=== PATIENT | female | born 1955 | race Caucasian/White ===

== ENCOUNTER → 2023-05-01 | Day surgery (SDC) | payer OTHER ==
[2023-05-01 09:15] LABS: BASO % 0.9 % (0-2.0); EOS % 0.9 % (0-4.5); HEMATOCRIT 30.4 % (32.4-45.2); LYMPH % 5.6 % (8-40); MCH 24.8 pg (25.7-33.7); MCHC 32.7 g/dl (32.0-36.0); MEAN CELL VOLUME 75.9 fl (80-96); MONO % 11.8 % (3.8-10.2); NEUT % 80.8 % (42.8-82.8); PLATELET COUNT 207 10^3/uL (134-434); RBC 4.01 M/mm3 (3.60-5.2); RDW 17.1 % (11.6-15.6); WHITE BLOOD COUNT 2.8 K/mm3 (4.0-10.0)
[2023-05-01 09:21] LABS: INR 1.3 (0.83-1.09)
[2023-05-01 13:40] LABS: BF WBC & OTHER NUCLEATED CELLS 632 /mm3
[2023-05-01 13:53] LABS: BODY FLUID MACROPHAGES 25 %; BODY FLUID MESOTHELIAL 2 %
[2023-05-02 16:08] LABS: BODY FLUID ALBUMIN 2.2 g/dL (Not Estab.)
== END | disposition home or self-care (01) ==
LOC: JRADIR 08:20
PROVIDERS: ATTEND Internal Medicine Gastroenterology
PROC: 0W9G3ZZ Drainage of Peritoneal Cavity, Percutaneous Approach (ICD-10-PCS; principal; 2023-05-01)
DX: R18.8 Other ascites (principal)
CPT/HCPCS: 36415; 49083; 76942-TC; 82042; 82150; 82465; 82945; 83615; 83986; 84157; 84478; 85025; 85610; 87070; 87075; 87102; 87116; 87205; 87206; 87210; 88108; 88305-TC

== ENCOUNTER 2023-05-02 17:25 | Inpatient (IN) | payer OTHER, MEDICARE ==
[2023-05-02] MEDS ORDERED: SODIUM CHLORIDE 0.9% 500 ML INFUS.BAG IV ONE (19:35)
[2023-05-02 20:29] LABS: HEMATOCRIT 29.8 % (32.4-45.2); HEMOGLOBIN 9.8 G/dL (10.7-15.3); MCH 25.7 pg (25.7-33.7); MCHC 32.8 g/dl (32.0-36.0); MEAN CELL VOLUME 78.3 fl (80-96); MEAN PLT VOLUME 9.2 fl (7.5-11.1); WHITE BLOOD COUNT 2.9 10^3/uL (4.0-10.8)
[2023-05-02 20:38] LABS: INR 1.31 (0.83-1.09); PROTHROMBIN TIME (PATIENT) 15.2 SEC (9.7-13.0)
[2023-05-02 20:52] LABS: ALBUMIN 3.1 g/dl (3.4-5.0); BILIRUBIN,TOTAL 0.8 mg/dl (0.2-1); BLOOD UREA NITROGEN 8.3 mg/dl (7-18); CREATININE 0.7 mg/dl (0.6-1.3); MAGNESIUM 1.9 mg/dL (1.8-2.4); PHOSPHOROUS 2.85 (2.5-4.9); POTASSIUM 3.9 mmol/L (3.5-5.1); SGOT/AST 16.4 U/L (15-37); SGPT/ALT 7.3 U/L (7-52)
[2023-05-02 21:06] LABS: PLATELET ESTIMATE ADEQUATE
[2023-05-02] MEDS ORDERED: PIPERACILLIN/TAZOB 4.5 GM 4.5 GM in DEXTROSE 5%-WATER 100 ML IVPB ONE (22:48)
[2023-05-02] MEDS ORDERED: PIPERACILLIN/TAZOBACTAM 4.5 GM VIAL IVPB ONE (22:58)
[2023-05-02] MEDS ORDERED: VANCOMYCIN 1,000 MG in DEXTROSE 5%-WATER - 250 ML IVPB ONE (23:37)
[2023-05-02] MEDS ORDERED: DOCUSATE SODIUM 100 MG CAPSULE (FP) PO PRN (23:39)
[2023-05-02] MEDS ORDERED: VANCOMYCIN 1,000 MG VIAL (RESTRICTED TO ID ONLY) ONE (23:45)
[2023-05-03] MEDS ORDERED: ALBUTEROL SO4 HFA INHALER IH PRN (01:15)
[2023-05-03] MEDS: LEVOTHYROXINE NA 50 MCG TABLET (FP) PO SCH (07:06)
[2023-05-03 08:17] LABS: ACTIVATED PTT 32.5 SECONDS (25.2-36.5); INR 1.24 (0.83-1.09); PROTHROMBIN TIME (PATIENT) 14.3 SEC (9.7-13.0)
[2023-05-03 08:31] LABS: BLOOD UREA NITROGEN 8.1 mg/dl (7-18); CALCIUM 7.9 mg/dl (8.5-10.1); CREATININE 0.7 mg/dl (0.6-1.3); PHOSPHOROUS 3.43 (2.5-4.9); POTASSIUM 3.6 mmol/L (3.5-5.1)
[2023-05-03 09:30] LABS: BASO % 1.2 % (0-2.0); EOS % 2.1 % (0-4.5); HEMATOCRIT 26.5 % (32.4-45.2); HEMOGLOBIN 8.5 GM/dL (10.7-15.3); LYMPH % 7.7 % (8-40); MCH 24.7 pg (25.7-33.7); MCHC 32.2 g/dl (32.0-36.0); MEAN CELL VOLUME 76.8 fl (80-96); MEAN PLT VOLUME 8.1 fl (7.5-11.1); MONO % 13.6 % (3.8-10.2); NEUT % 75.4 % (42.8-82.8); PLATELET COUNT 179 10^3/uL (134-434); RBC 3.45 M/mm3 (3.60-5.2); RDW 16.8 % (11.6-15.6)
[2023-05-03] MEDS ORDERED: PIPERACILLIN/TAZOB 3.375 GM 3.375 GM in DEXTROSE 5%-WATER - 50 ML IVPB ONE (11:30)
[2023-05-03] MEDS ORDERED: VANCOMYCIN/WATER FOR INJ (PEG) 1 GM/200 ML BAG IVPB ONE (12:15)
[2023-05-04] MEDS: LEVOTHYROXINE NA 50 MCG TABLET (FP) PO SCH (06:58)
[2023-05-04] MEDS ORDERED: SODIUM CHLORIDE 1,000 ML IV SCH (07:45)
[2023-05-04 08:24] LABS: INR 1.25 (0.83-1.09); PROTHROMBIN TIME (PATIENT) 14.5 SEC (9.7-13.0)
[2023-05-04 09:27] LABS: ALBUMIN 2.9 g/dl (3.4-5.0); BILIRUBIN,TOTAL 0.7 mg/dl (0.2-1); BLOOD UREA NITROGEN 8.5 mg/dl (7-18); CALCIUM 7.9 mg/dl (8.5-10.1); CREATININE 0.6 mg/dl (0.6-1.3); MAGNESIUM 1.8 mg/dL (1.8-2.4); PHOSPHOROUS 3.01 (2.5-4.9); POTASSIUM 3.4 mmol/L (3.5-5.1); SGOT/AST 13.3 U/L (15-37); SGPT/ALT 6.3 U/L (7-52); TOT PROT 4.8 g/dl (6.4-8.2)
[2023-05-04 11:53] LABS: BASO % 1.1 % (0-2.0); HEMATOCRIT 28.1 % (32.4-45.2); HEMOGLOBIN 9.3 GM/dL (10.7-15.3); LYMPH % 8.4 % (8-40); MCH 24.8 pg (25.7-33.7); MCHC 32.9 g/dl (32.0-36.0); MEAN CELL VOLUME 75.3 fl (80-96); MEAN PLT VOLUME 8.1 fl (7.5-11.1); MONO % 14.6 % (3.8-10.2); NEUT % 73.9 % (42.8-82.8); PLATELET COUNT 179 10^3/uL (134-434); RBC 3.74 M/mm3 (3.60-5.2); WHITE BLOOD COUNT 2.1 K/mm3 (4.0-10.0)
[2023-05-05] MEDS: LEVOTHYROXINE NA 50 MCG TABLET (FP) PO SCH (06:59)
[2023-05-05 10:10] LABS: CARCINOEMBRYONIC ANTIGEN 1.1 ng/mL (0.0-4.7)
[2023-05-05 11:14] LABS: BASO % 0.9 % (0-2.0); EOS % 1.5 % (0-4.5); HEMATOCRIT 27.7 % (32.4-45.2); HEMOGLOBIN 8.9 GM/dL (10.7-15.3); LYMPH % 10.8 % (8-40); MCH 24.7 pg (25.7-33.7); MCHC 32.3 g/dl (32.0-36.0); MEAN CELL VOLUME 76.4 fl (80-96); MONO % 12.6 % (3.8-10.2); NEUT % 74.2 % (42.8-82.8); PLATELET COUNT 184 10^3/uL (134-434); RBC 3.62 M/mm3 (3.60-5.2); RDW 17.1 % (11.6-15.6); WHITE BLOOD COUNT 2.1 K/mm3 (4.0-10.0)
[2023-05-05 11:15] LABS: INR 1.29 (0.83-1.09); PROTHROMBIN TIME (PATIENT) 14.9 SEC (9.7-13.0)
[2023-05-05 11:36] LABS: POTASSIUM 3.5 mmol/L (3.5-5.1)
[2023-05-05 11:49] LABS: ALBUMIN 2.2 g/dl (3.4-5.0); BLOOD UREA NITROGEN 9.4 mg/dL (7-18)
[2023-05-05 11:50] LABS: CALCIUM 7.7 mg/dL (8.5-10.1)
[2023-05-05 11:53] LABS: CREATININE 0.5 mg/dL (0.55-1.3); PHOSPHOROUS 2.5 mg/dL (2.5-4.9)
[2023-05-05 11:54] LABS: BILIRUBIN,TOTAL 0.5 mg/dL (0.2-1)
[2023-05-06] MEDS: LEVOTHYROXINE NA 50 MCG TABLET (FP) PO SCH (09:03)
[2023-05-06 09:27] LABS: BASO % 1.2 % (0-2.0); HEMATOCRIT 27.1 % (32.4-45.2); HEMOGLOBIN 8.9 GM/dL (10.7-15.3); LYMPH % 10.9 % (8-40); MCH 25.3 pg (25.7-33.7); MCHC 32.8 g/dl (32.0-36.0); MONO % 14.3 % (3.8-10.2); NEUT % 70.6 % (42.8-82.8); PLATELET COUNT 184 10^3/uL (134-434); RBC 3.52 M/mm3 (3.60-5.2); RDW 17.4 % (11.6-15.6); WHITE BLOOD COUNT 2.1 K/mm3 (4.0-10.0)
[2023-05-06 09:42] LABS: POTASSIUM 3.6 mmol/L (3.5-5.1)
[2023-05-06 10:01] LABS: ALBUMIN 2.1 g/dl (3.4-5.0); BLOOD UREA NITROGEN 8.4 mg/dL (7-18); CALCIUM 7.8 mg/dL (8.5-10.1)
[2023-05-06 10:04] LABS: CREATININE 0.5 mg/dL (0.55-1.3)
[2023-05-06 10:05] LABS: TOT PROT 4.9 g/dl (6.4-8.2)
[2023-05-06 10:11] LABS: BILIRUBIN,TOTAL 0.5 mg/dL (0.2-1)
[2023-05-07] MEDS: LEVOTHYROXINE NA 50 MCG TABLET (FP) PO SCH (08:09)
[2023-05-07 09:17] LABS: BASO % 1.1 % (0-2.0); EOS % 1.9 % (0-4.5); HEMATOCRIT 27.2 % (32.4-45.2); HEMOGLOBIN 8.9 GM/dL (10.7-15.3); LYMPH % 8.4 % (8-40); MCH 24.7 pg (25.7-33.7); MCHC 32.6 g/dl (32.0-36.0); MEAN CELL VOLUME 75.8 fl (80-96); MEAN PLT VOLUME 7.9 fl (7.5-11.1); MONO % 11.3 % (3.8-10.2); NEUT % 77.3 % (42.8-82.8); PLATELET COUNT 189 10^3/uL (134-434); RBC 3.58 M/mm3 (3.60-5.2); RDW 16.9 % (11.6-15.6); WHITE BLOOD COUNT 2.5 K/mm3 (4.0-10.0)
[2023-05-07 09:18] LABS: INR 1.24 (0.83-1.09); PROTHROMBIN TIME (PATIENT) 14.4 SEC (9.7-13.0)
[2023-05-07 09:33] LABS: POTASSIUM 3.5 mmol/L (3.5-5.1)
[2023-05-07 09:38] LABS: ALBUMIN 2.2 g/dl (3.4-5.0); CALCIUM 7.7 mg/dL (8.5-10.1)
[2023-05-07 09:39] LABS: MAGNESIUM 1.8 mg/dL (1.8-2.4)
[2023-05-07 09:42] LABS: CREATININE 0.5 mg/dL (0.55-1.3)
[2023-05-07 09:43] LABS: BILIRUBIN,TOTAL 0.7 mg/dL (0.2-1)
[2023-05-07 09:44] LABS: TOT PROT 4.8 g/dl (6.4-8.2)
[2023-05-07] MEDS ORDERED: POTASSIUM CHLORIDE TABS 20 MEQ TABLET.ER (FP) PO ONE (11:45)
[2023-05-07] MEDS ORDERED: BISACODYL 5 MG TABLET.DR (FP) PO ONE (14:00)
[2023-05-07] MEDS ORDERED: PEG 3350/NA SULF BICARB CL/KCL 4000 ML SOLN.RECON PO ONE (16:00)
[2023-05-08] MEDS: LEVOTHYROXINE NA 50 MCG TABLET (FP) PO SCH (08:14)
[2023-05-08 09:19] LABS: BASO % 0.9 % (0-2.0); HEMATOCRIT 29.6 % (32.4-45.2); HEMOGLOBIN 9.4 GM/dL (10.7-15.3); LYMPH % 7.9 % (8-40); MCH 24.5 pg (25.7-33.7); MCHC 31.9 g/dl (32.0-36.0); MEAN CELL VOLUME 76.9 fl (80-96); MEAN PLT VOLUME 7.9 fl (7.5-11.1); MONO % 13.1 % (3.8-10.2); NEUT % 76.1 % (42.8-82.8); PLATELET COUNT 198 10^3/uL (134-434); RBC 3.84 M/mm3 (3.60-5.2); RDW 17.3 % (11.6-15.6); WHITE BLOOD COUNT 2.7 K/mm3 (4.0-10.0)
[2023-05-08 09:44] LABS: POTASSIUM 3.6 mmol/L (3.5-5.1)
[2023-05-08 09:58] LABS: ALBUMIN 2.3 g/dl (3.4-5.0); BLOOD UREA NITROGEN 8.7 mg/dL (7-18); CALCIUM 7.9 mg/dL (8.5-10.1); MAGNESIUM 1.9 mg/dL (1.8-2.4)
[2023-05-08 10:00] LABS: CREATININE 0.5 mg/dL (0.55-1.3)
[2023-05-08 10:05] LABS: BILIRUBIN,TOTAL 0.6 mg/dL (0.2-1); TOT PROT 5.2 g/dl (6.4-8.2)
[2023-05-08] MEDS ORDERED: BISACODYL 5 MG TABLET.DR (FP) PO ONE (17:00)
[2023-05-08] MEDS ORDERED: PEG 3350/NA SULF BICARB CL/KCL 4000 ML SOLN.RECON PO ONE (18:00)
[2023-05-09] MEDS: LEVOTHYROXINE NA 50 MCG TABLET (FP) PO SCH (07:23)
[2023-05-09 10:13] LABS: BASO % 1.2 % (0-2.0); HEMATOCRIT 28.2 % (32.4-45.2); HEMOGLOBIN 8.8 GM/dL (10.7-15.3); LYMPH % 8.1 % (8-40); MCH 24.3 pg (25.7-33.7); MCHC 31.4 g/dl (32.0-36.0); MEAN CELL VOLUME 77.3 fl (80-96); MEAN PLT VOLUME 7.9 fl (7.5-11.1); MONO % 14.2 % (3.8-10.2); NEUT % 73.5 % (42.8-82.8); PLATELET COUNT 195 10^3/uL (134-434); RBC 3.64 M/mm3 (3.60-5.2); RDW 17.7 % (11.6-15.6)
[2023-05-09 10:41] LABS: POTASSIUM 3.6 mmol/L (3.5-5.1)
[2023-05-09 10:48] LABS: CALCIUM 8.1 mg/dL (8.5-10.1)
[2023-05-09 10:49] LABS: ALBUMIN 2.4 g/dl (3.4-5.0)
[2023-05-09 10:51] LABS: CREATININE 0.5 mg/dL (0.55-1.3)
[2023-05-09 10:53] LABS: BILIRUBIN,TOTAL 0.7 mg/dL (0.2-1); TOT PROT 5.2 g/dl (6.4-8.2)
[2023-05-10] MEDS: LEVOTHYROXINE NA 50 MCG TABLET (FP) PO SCH (06:55)
[2023-05-10 10:54] LABS: BASO % 1.3 % (0-2.0); EOS % 1.6 % (0-4.5); HEMATOCRIT 28.8 % (32.4-45.2); HEMOGLOBIN 9.5 GM/dL (10.7-15.3); LYMPH % 7.9 % (8-40); MCH 25.1 pg (25.7-33.7); MCHC 33.1 g/dl (32.0-36.0); MEAN CELL VOLUME 75.8 fl (80-96); MONO % 12.5 % (3.8-10.2); NEUT % 76.7 % (42.8-82.8); PLATELET COUNT 205 10^3/uL (134-434); RDW 17.9 % (11.6-15.6); WHITE BLOOD COUNT 2.5 K/mm3 (4.0-10.0)
[2023-05-10 11:14] LABS: POTASSIUM 3.7 mmol/L (3.5-5.1)
[2023-05-10 11:16] LABS: CALCIUM 8.4 mg/dL (8.5-10.1)
[2023-05-10 11:18] LABS: ALBUMIN 2.4 g/dl (3.4-5.0); BLOOD UREA NITROGEN 10.8 mg/dL (7-18)
[2023-05-10 11:21] LABS: CREATININE 0.6 mg/dL (0.55-1.3)
[2023-05-10 11:23] LABS: BILIRUBIN,TOTAL 0.5 mg/dL (0.2-1); TOT PROT 5.4 g/dl (6.4-8.2)
[2023-05-10 16:18] VITALS: BMI 20.3
[2023-05-11] MEDS ORDERED: LACTATED RINGERS SOLUTION 1,000 ML/1,000 ML INFUS.BAG IV SCH
[2023-05-11] MEDS: LEVOTHYROXINE NA 50 MCG TABLET (FP) PO SCH (06:07)
[2023-05-11 10:43] LABS: BASO % 0.9 % (0-2.0); EOS % 2.3 % (0-4.5); HEMATOCRIT 29.9 % (32.4-45.2); HEMOGLOBIN 9.7 GM/dL (10.7-15.3); LYMPH % 7.5 % (8-40); MCH 25.2 pg (25.7-33.7); MCHC 32.5 g/dl (32.0-36.0); MEAN CELL VOLUME 77.5 fl (80-96); MONO % 13.4 % (3.8-10.2); NEUT % 75.9 % (42.8-82.8); PLATELET COUNT 230 10^3/uL (134-434); RBC 3.86 M/mm3 (3.60-5.2); RDW 18.1 % (11.6-15.6); WHITE BLOOD COUNT 2.9 K/mm3 (4.0-10.0)
[2023-05-11 10:48] LABS: INR 1.22 (0.83-1.09); PROTHROMBIN TIME (PATIENT) 14.1 SEC (9.7-13.0)
[2023-05-11 11:26] LABS: POTASSIUM 3.5 mmol/L (3.5-5.1)
[2023-05-11 11:47] LABS: ALBUMIN 2.5 g/dl (3.4-5.0)
[2023-05-11 11:48] LABS: CALCIUM 8.4 mg/dL (8.5-10.1); MAGNESIUM 2.1 mg/dL (1.8-2.4)
[2023-05-11 11:49] LABS: BLOOD UREA NITROGEN 10.4 mg/dL (7-18)
[2023-05-11 11:51] LABS: CREATININE 0.5 mg/dL (0.55-1.3)
[2023-05-11 11:52] LABS: BILIRUBIN,TOTAL 0.9 mg/dL (0.2-1); TOT PROT 5.5 g/dl (6.4-8.2)
[2023-05-11 11:56] LABS: HIV INTERPRETATION NEGATIVE (NEGATIVE)
[2023-05-11] MEDS ORDERED: MIDAZOLAM HCL 2 MG/2 ML SINGLE DOSE VIAL ONE (11:56)
[2023-05-11] MEDS ORDERED: MIDAZOLAM HCL 2 MG/2 ML SINGLE DOSE VIAL IVPUSH ONE ×2 (12:45→12:50)
[2023-05-11] MEDS ORDERED: SODIUM CHLORIDE 500 ML IV ONE (12:45)
[2023-05-11 19:23] VITALS: RESP 20
[2023-05-12] MEDS: LEVOTHYROXINE NA 50 MCG TABLET (FP) PO SCH (06:43)
[2023-05-12 12:21] LABS: BASO % 0.8 % (0-2.0); EOS % 2.3 % (0-4.5); HEMATOCRIT 26.3 % (32.4-45.2); HEMOGLOBIN 8.9 GM/dL (10.7-15.3); LYMPH % 5.2 % (8-40); MCH 25.5 pg (25.7-33.7); MCHC 33.9 g/dl (32.0-36.0); MEAN CELL VOLUME 75.3 fl (80-96); MEAN PLT VOLUME 7.8 fl (7.5-11.1); MONO % 13.5 % (3.8-10.2); NEUT % 78.2 % (42.8-82.8); PLATELET COUNT 177 10^3/uL (134-434); RBC 3.49 M/mm3 (3.60-5.2); RDW 18.1 % (11.6-15.6); WHITE BLOOD COUNT 2.7 K/mm3 (4.0-10.0)
[2023-05-12 12:46] LABS: POTASSIUM 3.7 mmol/L (3.5-5.1)
[2023-05-12 12:50] LABS: CALCIUM 7.9 mg/dL (8.5-10.1)
[2023-05-12 12:51] LABS: ALBUMIN 2.2 g/dl (3.4-5.0); MAGNESIUM 1.8 mg/dL (1.8-2.4)
[2023-05-12 12:54] LABS: BILIRUBIN,TOTAL 0.6 mg/dL (0.2-1); CREATININE 0.5 mg/dL (0.55-1.3)
[2023-05-12 15:33] VITALS: BP 120/75; PULSE 84; TEMP 98.6
== END 2023-05-12 18:34 | disposition home or self-care (01) | DRG 948 ==
LOC: FER 17:25 → FM/S 05-03 00:08 → J8W 05-04 21:16
PROVIDERS: ADMIT Internal Medicine; ATTEND Nurse Practitioner Family
PROC: 0W9G3ZX Drainage of Peritoneal Cavity, Percutaneous Approach, Diagnostic (ICD-10-PCS; principal; 2023-05-05)
PROC: 0DJD8ZZ Inspection of Lower Intestinal Tract, Via Natural or Artificial Opening Endoscopic (ICD-10-PCS; 2023-05-09)
PROC: 07DD3ZX Extraction of Aortic Lymphatic, Percutaneous Approach, Diagnostic (ICD-10-PCS; 2023-05-11)
DX: R18.8 Other ascites (principal); E46 Unspecified protein-calorie malnutrition; C82.80 Other types of follicular lymphoma, unspecified site; E03.9 Hypothyroidism, unspecified; Z68.20 Body mass index [BMI] 20.0-20.9, adult; K63.89 Other specified diseases of intestine; R50.9 Fever, unspecified; K57.30 Diverticulosis of large intestine without perforation or abscess without bleeding; D70.9 Neutropenia, unspecified; K64.8 Other hemorrhoids
CPT/HCPCS: 0241U-QW; 36415; 49180; 71045-TC-FY; 71250-TC; 71260-TC; 74177-TC; 74183-TC; 76830-TC; 76942-TC; 77012-TC; 80048; 80053; 81003; 81015; 82378; 83605; 83615; 83690; 83735; 84100; 84439; 84443; 85025; 85027; 85610; 85730; 86140; 86301; 86304; 86850; 86900; 86901; 87040; 87077; 87086; 87389; 87635; 88108; 88305-TC; 93005; 99285-25; Q9967